=== PATIENT | male | born 1955 | race Caucasian/White ===

== ENCOUNTER 2019-06-19 10:32 | Emergency (ER) | payer MEDICARE ==
[2019-06-19] MEDS ORDERED: Sodium Chloride 0.9% 10 ML Syringe FLUSH PRN ×2 (10:53)
[2019-06-19] MEDS ORDERED: Aspirin 81 MG Tab.Chew PO ONE (10:54)
--- NOTE | 2019-06-19 11:05 | EDM.PDOC ---
ED HPI GENERAL MEDICAL PROBLEM - General Chief Complaint: Neuro Symptoms/Deficits Stated Complaint: [facility]IA [facility] Time Seen by Provider: 06/19/19 10:52 Source of Information: Reports: Patient, Family, RN Notes Reviewed History Limitations: Reports: No Limitations - History of Present Illness INITIAL COMMENTS - FREE TEXT/NARRATIVE: 63-year-old gentleman presents emergency department today with sudden onset of right arm weakness. The event happened at 9. This morning he did arrive by EMS, he states he may have had an episode similar to this 24 hours ago he is a right- handed individual the symptoms lasted approximately 15 minutes he is completely asymptomatic at this time. No history of CVA in the past - Related Data Allergies Allergy/AdvReac Type Severity Reaction Status Date / Time No Known Allergies Allergy Verified 06/19/19 10:47 Home Meds: Home Meds Lansoprazole [Prevacid] 15 mg PO DAILY 06/19/19 [History] Past Medical History HEENT History: Reports: Impaired Vision Cardiovascular History: Reports: Hypertension Gastrointestinal History: Reports: GERD Social & Family History - Tobacco Use Smoking Status *Q: Current Every Day Smoker Years of Tobacco use: 45 Packs/Tins Daily: 1 - Caffeine Use Caffeine Use: Reports: Coffee - Alcohol Use Days Per Week of Alcohol Use: 7 Number of Drinks Per Day: 6 Total Drinks Per Week: 42 Date of Last Drink: 06/18/19 Time of Last Drink: 18:00 - Recreational Drug Use Recreational Drug Use: No ED ROS GENERAL - Review of Systems Review Of Systems: See Below Constitutional: Reports: No Symptoms HEENT: Reports: No Symptoms Respiratory: Reports: No Symptoms Cardiovascular: Reports: No Symptoms GI/Abdominal: Reports: No Symptoms : Reports: No Symptoms Musculoskeletal: Reports: No Symptoms Neurological: Reports: Weakness (Right arm) ED EXAM, NEURO - Physical Exam Exam: See Below Text/Narrative:: Cranial nerves II test with pupillary light reflex 4 mm to 3 mm bilaterally, CN III test pupillary constriction, lid elevation and eye abduction bilaterally, CN IV downward movement of eyes bilaterally, CN V good jaw movement, CN lateral deviation of the eyes bilaterally to finger movement, CN VII symmetrical smile shows teeth without difficulty, CN VIII pass finger rub to ears bilaterally, CN IX adequate voice and tone, CN X adequate voice and tone no difficulty swallowing, CN XI can shrug shoulders without difficulty, CN XII can stick tongue out without difficulty, cranial nerves II to XII intact as tested, power is 5 out 5 in upper and lower extremities, patellar reflex, biceps reflex +2 can do finger to nose without difficulty, no dysdiadochokinesis , no difficulty with rapid alternating movements can do [id number] without difficulty, no pronator drift, no focal neurologic deficit Exam Limited By: No Limitations General Appearance: Alert, WD/WN, No Apparent Distress Respiratory/Chest: No Respiratory Distress, Lungs Clear, Normal Breath Sounds, No Accessory Muscle Use, Chest Non-Tender Cardiovascular: Regular Rate, Rhythm, No Murmur GI/Abdominal: Soft, Non-Tender Course - Vital Signs Last Recorded V/S: Last Vital Signs Temp 95.9 F 06/19/19 10:42 Pulse 63 06/19/19 12:25 Resp 26 H 06/19/19 12:40 BP 184/148 H 06/19/19 12:40 Pulse Ox 97 06/19/19 12:25 - Orders/Labs/Meds Orders: Active Orders 24 hr Category Date Time Status EKG Documentation Completion [RC] ASDIRECTED Care 06/19/19 10:54 Active Peripheral IV Care [RC] . DIRECTED Care 06/19/19 10:54 Active Sodium Chloride 0.9% [Saline Flush] Med 06/19/19 10:53 Active 10 ml FLUSH ASDIRECTED PRN Sodium Chloride 0.9% [Saline Flush] Med 06/19/19 10:53 Active 10 ml FLUSH ASDIRECTED PRN Peripheral IV Insertion Adult [OM.PC] Urgent Oth 06/19/19 10:53 Ordered EKG 12 Lead [EK] Urgent Ther 06/19/19 10:53 Ordered Medication Orders Sodium Chloride (Saline Flush) 10 ml FLUSH ASDIRECTED PRN PRN Reason: Keep Vein Open Last Admin: 06/19/19 10:58 Dose: 10 ml Sodium Chloride (Saline Flush) 10 ml FLUSH ASDIRECTED PRN PRN Reason: Keep Vein Open Labs: Laboratory Tests 06/19/19 06/19/19 06/19/19 Range/Units 11:03 11:03 11:03 WBC 5.4 (4.5-11.0) K/uL RBC 4.43 (4.30-5.90) M/uL Hgb 14.1 (12.0-15.0) g/dL Hct 41.9 (40.0-54.0) % MCV 95 (80-98) fL MCH 32 H (27-31) pg MCHC 34 (32-36) % Plt Count 323 (150-400) K/uL Neut % (Auto) 74 H (36-66) % Lymph % (Auto) 18 L (24-44) % [place] % (Auto) 6 (2-6) % Eos % (Auto) 2 (2-4) % Baso % (Auto) 1 (0-1) % PT 10.0 (9.5-12.0) sec INR 0.92 (0.80-1.20) APTT 25.8 L (27.0-36.0) sec Sodium 138 L (140-148) mmol/L Potassium 4.2 (3.6-5.2) mmol/L Chloride 102 (100-108) mmol/L Carbon Dioxide 30 (21-32) mmol/L Anion Gap 10.2 (5.0-14.0) mmol/L BUN 14 (7-18) mg/dL Creatinine 1.0 (0.8-1.3) mg/dL Est Cr Clr Drug Dosing 70.87 mL/min Estimated GFR (MDRD) > 60 (>60) Glucose 115 H (74-106) mg/dL Calcium 8.9 (8.5-10.1) mg/dL Total Bilirubin 0.4 (0.2-1.0) mg/dL AST 20 (15-37) U/L ALT 27 (12-78) U/L Alkaline Phosphatase 56 (46-116) U/L Troponin I < 0.017 (0.000-0.056) ng/mL Total Protein 6.9 (6.4-8.2) g/dL Albumin 3.9 (3.4-5.0) g/dL Globulin 3.0 (2.3-3.5) g/dL Albumin/Globulin Ratio 1.3 (1.2-2.2) Meds: Medications Generic Name Dose Route Start Last Admin Trade Name Freq PRN Reason Stop Dose Admin Sodium Chloride 10 ml 06/19/19 10:53 06/19/19 10:58 Saline Flush FLUSH 10 ml ASDIRECTED PRN Administration Keep Vein Open Sodium Chloride 10 ml 06/19/19 10:53 Saline Flush FLUSH ASDIRECTED PRN Keep Vein Open Discontinued Medications Generic Name Dose Route Start Last Admin Trade Name Freq PRN Reason Stop Dose Admin Aspirin 324 mg 06/19/19 10:54 06/19/19 10:58 Aspirin PO 06/19/19 10:55 324 mg ONETIME ONE Administration Departure - Departure Time of Disposition: 12:47 Disposition: DC/Tfer to Acute Hospital 02 Condition: Fair Clinical Impression: TIA (transient ischemic attack) - Discharge Information Referrals: PCP,None [Primary Care Provider] - Forms: ED Department Discharge - My Orders Last 24 Hours: My Active Orders 06/19/19 10:53 Sodium Chloride 0.9% [Saline Flush] 10 ml FLUSH ASDIRECTED PRN Sodium Chloride 0.9% [Saline Flush] 10 ml FLUSH ASDIRECTED PRN Peripheral IV Insertion Adult [OM.PC] Urgent EKG 12 Lead [EK] Urgent 06/19/19 10:54 EKG Documentation Completion [RC] ASDIRECTED Peripheral IV Care [RC] . DIRECTED - Assessment/Plan Last 24 Hours: My Active Orders 06/19/19 10:53 Sodium Chloride 0.9% [Saline Flush] 10 ml FLUSH ASDIRECTED PRN Sodium Chloride 0.9% [Saline Flush] 10 ml FLUSH ASDIRECTED PRN Peripheral IV Insertion Adult [OM.PC] Urgent EKG 12 Lead [EK] Urgent 06/19/19 10:54 EKG Documentation Completion [RC] ASDIRECTED Peripheral IV Care [RC] . DIRECTED Plan: Assessment Acuity = acute Site and laterality = TIA complicated the patient with history of hypertension as well as old lacunar infarct on CT scan Etiology = unknown etiology Manifestations = none Location of injury = Home Lab values = CBC, INR, CMP unremarkable EKG demonstrates a sinus rhythm with left axis deviation left ventricular hypertrophy no signs of ischemia, CT scan of the head shows no acute process old prior lacunar infarct Plan Called discussed case with Dr. Bejarano neurologist on-call at [facility] recommended further evaluation that is not available at our facility at this time, 1225. Next called the discussed case Dr. Posadas hospitalist on-call same institution did accept the patient in transport will be transported via EMS ground aspirin has been given at this time 1240 This note was dictated using [employer] voice recognition software please call with any questions on syntax or grammar.
--- NOTE | 2019-06-19 11:40 | CRLCT ---
INDICATION: Right arm weakness. TECHNIQUE: CT head without IV contrast. FINDINGS: Cavum septum pellucidum a normal variant finding. Retention cyst or loculated fluid right posterior ethmoidal sinus. Small old lacunar infarct or prominent perivascular space in the right lateral basal ganglia or frontal parietal region. Mild cerebral atrophy. No intracranial hemorrhage, edema, or mass effect. Remainder negative. IMPRESSION: No acute intracranial disease. Chronic intracranial findings as described above. Please note that all CT scans at this facility use dose modulation, iterative reconstruction, and/or weight-based dosing when appropriate to reduce radiation dose to as low as reasonably achievable. Dictated by Lefty Kay MD @ Jun 19 2019 11:38AM Signed by Dr. Lefty Kay @ Jun 19 2019 11:38AM
== END 2019-06-19 17:36 ==
LOC: JP.ED 10:32
DX: G45.9 Transient cerebral ischemic attack, unspecified (principal); I10 Essential (primary) hypertension; F17.210 Nicotine dependence, cigarettes, uncomplicated; Z79.899 Other long term (current) drug therapy
CPT/HCPCS: 36415; 70450; 80053; 84484; 85025; 85610; 85730; 93005; 99285; A9270

== ENCOUNTER 2024-12-15 09:30 | Inpatient (IN) | payer MEDICARE ==
[2024-12-15] MEDS: fentaNYL 100 MCG/2 ML SDV IVPUSH ONE (10:48)
[2024-12-15 10:50] LABS: BASOPHILS PERCENT AUTO 0.2 % (0.1-1.3); EOSINOPHILS ABSOLUTE AUTO 0.03 K/uL (0.00-0.40); EOSINOPHILS PERCENT AUTO 0.6 % (0.0-5.4); HEMATOCRIT 33.6 % (38.4-49.7); HEMOGLOBIN 11.7 g/dL (12.9-16.9); IMMATURE GRAN PERCENT AUTO 0.4 % (0.0-0.7); LYMPHOCYTES ABSOLUTE AUTO 0.71 K/uL (0.8-3.3); LYMPHOCYTES PERCENT AUTO 13.4 % (11.4-47.7); MEAN CORPUSCULAR HEMOGLOBIN 31.1 pg (31.6-35.5); MEAN CORPUSCULAR HGB CONC 34.8 g/dL (31.6-35.5); MEAN CORPUSCULAR VOLUME 89.4 fL (81.4-99.0); MONOCYTES ABSOLUTE AUTO 0.32 K/uL (0.20-0.90); NEUTROPHILS ABSOLUTE AUTO 4.21 K/uL (1.0-7.6); NEUTROPHILS PERCENT AUTO 79.4 % (40.0-78.1); PLATELET COUNT,PLT 276 K/uL (130-375); RED BLOOD CELL COUNT 3.76 M/uL (4.14-5.76); WHITE BLOOD CELL COUNT,WBC 5.3 K/uL (3.2-11.0)
[2024-12-15 10:53] LABS: BASOPHILS ABSOLUTE AUTO 0.01 K/uL (0.00-0.10); IMMATURE GRAN ABSOLUTE AUTO 0.02 K/uL (0.00-0.23)
[2024-12-15 11:10] LABS: A/G RATIO 1.1 (1.2-2.2); ALANINE AMINOTRANSFERASE,ALT 12 U/L (12-78); ALBUMIN 3.7 g/dL (3.4-5.0); ALKALINE PHOSPHATASE 94 U/L (46-116); ASPARTATE AMNIOTRANSFERASE,AST 13 U/L (15-37); BILIRUBIN TOTAL 0.6 mg/dL (0.2-1.0); BLOOD UREA NITROGEN,BUN 17 mg/dL (7-18); CALCIUM 9.1 mg/dL (8.5-10.1); CARBON DIOXIDE,CO2 24 mmol/L (21-32); CHLORIDE,CL 98 mmol/L (100-108); CREATININE 1.3 mg/dL (0.8-1.3); ESTIMATED GFR 59 mL/min (>60); GLUCOSE RANDOM 95 mg/dL (74-106); POTASSIUM,K 4.2 mmol/L (3.6-5.2); SODIUM,NA 133 mmol/L (140-148)
[2024-12-15] MEDS: Sodium Chloride 0.9% 80 ML IV SCH (11:28)
[2024-12-15] MEDS: Sodium Chloride 0.9% 10 ML Syringe FLUSH ONE (11:28)
[2024-12-15] MEDS: Iopamidol 612 MG/ML 100 ML Bottle IV SCH (11:28)
[2024-12-15 11:29] LABS: ANION GAP 15.2 mmol/L (5.0-14.0)
[2024-12-15] MEDS: HYDROmorphone 0.5 MG/0.5 ML Syringe IVPUSH ONE (13:38)
[2024-12-15] MEDS: Sodium Chloride 0.9% 1,000 ML IV SCH (13:39)
[2024-12-15] MEDS: Lidocaine 4% Top Soln 50 ML Bottle MUCMEM ONE (13:46)
[2024-12-15] MEDS: HYDROmorphone 1 MG/ML Syringe IVPUSH ONE (16:37)
[2024-12-15] MEDS ORDERED: Naloxone 0.4 MG/ML SDV IVPUSH PRN (17:15)
[2024-12-15] MEDS ORDERED: Acetaminophen 325 MG Tab PO PRN (17:15)
[2024-12-15] MEDS ORDERED: Sodium Chloride 0.9% 10 ML Syringe FLUSH PRN (17:15)
[2024-12-15] MEDS: HYDROmorphone 0.5 MG/0.5 ML Syringe IVPUSH PRN (18:42)
[2024-12-15] MEDS: Enoxaparin 40 MG/0.4 ML Syringe SUBCUT SCH (18:43)
[2024-12-15] MEDS: Pantoprazole 40 MG Vial IV SCH (18:43)
[2024-12-15] MEDS: Gabapentin 400 MG Cap PO SCH (20:43)
[2024-12-15] MEDS: atorvaSTATin 20 MG Tab PO SCH (20:43)
[2024-12-16] MEDS: Sodium Chloride 0.9% 1,000 ML IV SCH ×2 (01:30→13:59)
[2024-12-16 06:27] LABS: HEMATOCRIT 30.7 % (38.4-49.7); HEMOGLOBIN 10.5 g/dL (12.9-16.9); MEAN CORPUSCULAR HEMOGLOBIN 31.1 pg (31.6-35.5); MEAN CORPUSCULAR HGB CONC 34.2 g/dL (31.6-35.5); MEAN CORPUSCULAR VOLUME 90.8 fL (81.4-99.0); RED BLOOD CELL COUNT 3.38 M/uL (4.14-5.76); WHITE BLOOD CELL COUNT,WBC 4.6 K/uL (3.2-11.0)
[2024-12-16 06:45] LABS: CALCIUM 8.4 mg/dL (8.5-10.1); EST CRCL DRUG DOSING (CG) 52.42 mL/min; MAGNESIUM 1.3 mg/dL (1.8-2.4); POTASSIUM,K 3.7 mmol/L (3.6-5.2)
[2024-12-16 06:46] LABS: ANION GAP 13.7 mmol/L (5.0-14.0)
[2024-12-16] MEDS: Tamsulosin 0.4 MG Cap.ER PO SCH (08:26)
[2024-12-16] MEDS: Magnesium Oxide 400 MG Tab PO SCH (08:55)
[2024-12-16] MEDS: Magnesium Sulf/Wat 2 GM/50 mL 2 GM in Premix Bag 1 BAG IV SCH (08:57)
[2024-12-16] MEDS: Nystatin Susp 100,000 Unit/ML 5 ML UD Cup PO SCH (10:12)
[2024-12-16] MEDS: Nicotine 21 MG/24 Hr Patch TRDERM SCH (10:13)
[2024-12-16] MEDS: Ondansetron 4 MG/2 ML SDV IV PRN (13:30)
[2024-12-17 06:32] LABS: CALCIUM 8.6 mg/dL (8.5-10.1); EST CRCL DRUG DOSING (CG) 52.29 mL/min; MAGNESIUM 2.5 mg/dL (1.8-2.4)
[2024-12-18 06:19] LABS: CALCIUM 8.7 mg/dL (8.5-10.1); CREATININE 0.9 mg/dL (0.8-1.3); EST CRCL DRUG DOSING (CG) 57.57 mL/min; POTASSIUM,K 3.8 mmol/L (3.6-5.2)
[2024-12-18 06:20] LABS: ANION GAP 13.8 mmol/L (5.0-14.0)
[2024-12-18] MEDS: oxyCODONE 5 MG Tab PO PRN (17:13)
[2024-12-20] MEDS ORDERED: Pantoprazole 40 MG Tab.CR PO SCH (16:30)
== END 2024-12-20 10:57 | disposition home or self-care (01) | DRG 389 ==
LOC: JP.ED 09:30 → JP.MS 14:10
PROVIDERS: ADMIT Hospitalist; ATTEND Hospitalist
DX: K56.609 Unspecified intestinal obstruction, unspecified as to partial versus complete obstruction (principal); C20 Malignant neoplasm of rectum; I10 Essential (primary) hypertension; F17.210 Nicotine dependence, cigarettes, uncomplicated; K21.9 Gastro-esophageal reflux disease without esophagitis; F41.9 Anxiety disorder, unspecified; H54.7 Unspecified visual loss; Z79.899 Other long term (current) drug therapy; Z86.73 Personal history of transient ischemic attack (TIA), and cerebral infarction without residual deficits; Z98.890 Other specified postprocedural states; Z93.3 Colostomy status
CPT/HCPCS: 36415; 71045; 74177; 80053; 83690; 85025; 96374; 96375; 99285; A9270; J3010; Q9967; 74019; 74019-26; 74021; 74021-26; 80048; 83735; 85027; 99222; 99231; 99238; J1171; J1650; J2405; J2470; J3475